=== PATIENT | female | born 1970 | race American Indian/Alaskan Native ===

== ENCOUNTER 2020-12-24 10:08 | Outpatient (CLI) | payer OTHER ==
--- NOTE | 2020-12-24 12:35 | XRay Report ---
LUMBAR SPINE HISTORY: Back pain. COMPARISON: None. TECHNIQUE: 3 view(s) of the lumbar spine obtained. FINDINGS: Vertebrae: No evidence of acute vertebral body fracture or subluxation. Disc Spaces:Moderate degenerative change at L5/S1. Facet Joints:Moderate facet arthropathy at L5/S1. Prevertebral Soft Tissues:Multiple suspected phleboliths within the pelvis Additional findings: None. IMPRESSION: Lumbar spine without evidence of acute osseous injury. Moderate degenerative change at L5/S1. If back pain persists or additional evaluation is clinically i ndicated, an MRI may be considered. Signer Name: Masoud Boothe MD Signed: 12/24/2020 12:05 PM Workstation Name: [id number]
== END 2020-12-24 10:09 | disposition home or self-care (01) ==
LOC: XRAY 10:08
PROVIDERS: ATTEND Internal Medicine
DX: M47.817 Spondylosis without myelopathy or radiculopathy, lumbosacral region (principal)
CPT/HCPCS: 72100